=== PATIENT | female | born 2000 | race Hispanic/Latino ===

== ENCOUNTER 2025-07-10 10:57 | Emergency (ER) | payer SELFPAY ==
[2025-07-10 11:01] VITALS: BP 128/70
[2025-07-10 11:30] LABS: Hematocrit 37.7 % (37.0-47.0); Hemoglobin 12.7 g/dL (12.0-16.0); Mean Corp Hgb Conc. 33.7 g/dL (33.0-37.0); Mean Corpuscular Volume 91.1 fL (81.0-99.0); Nucleated Red Blood Cells % 0 %; Platelet Count 297 10^3/uL (130-400); Red Cell Dist. Width 11.7 % (11.5-14.5)
[2025-07-10 11:45] LABS: ALT (SGPT) 27 U/L (0-35); AST (SGOT) 27 U/L (14-36); Albumin 4.7 g/dl (3.5-5.0); Alkaline Phosphatase 83 U/L (38-126); Blood Urea Nitrogen 11 mg/dl (7-17); Calcium 9.3 mg/dl (8.4-10.2); Carbon Dioxide 22 mmol/L (22-30); Chloride 105 mmol/L (98-107); Glucose 89 mg/dl (70-99); Lipase 44 U/L (23-300); Potassium 4.2 mmol/L (3.5-5.1); Sodium 136 mmol/L (135-145); Total Protein 7.8 g/dl (6.3-8.2); eGFR > 60.00
[2025-07-10 11:48] LABS: HCG, Serum Qualitative Screen Negative
[2025-07-10 12:04] LABS: Urine Character Slightly Cloudy (Clear)
--- NOTE | 2025-07-10 14:44 | ED.GENMED ---
Addendum entered and electronically signed by Dmitry Vieyra PA-C 07/14/25 10:24:
Patient's urine culture with greater than 100,000 CFU of E. coli. Pansensitive. Prescription for Augmentin sent to pharmacy. Patient notes she still has symptoms. Encouraged to follow-up with primary care provider.
Original Note:
History of Present Illness
General
Chief Complaint: Abdominal Pain
Source: patient
Time Seen by Provider: 07/10/25 14:32
History of Present Illness
History of Present Illness:
This patient is a 25-year-old female who states that about 3 weeks ago she got epigastric pain without radiation that spontaneously resolved. Then, 6 days ago, on Saturday, she noted that the epigastric pain gradually returned. Since that time, the
pain has been there on and off, described as seeming to come when she eats or drinks or sometimes when she moves a certain way. The pain is without radiation. She denies associated back pain, fever, chills, neck pain, dyspnea, chest pain,
vomiting. Her bowel movements have been normal although after taking a dose of Pepto she noted that her stools were black. She denies heavy nonsteroidal use. Patient's last menstruation was about 2 weeks ago. She presented today because it
seemed like the pain was worse today. At this moment she is pain-free.
Past History
Past History
ED Past Medical History: None
ED Past Surgical History: None
Social History
Tobacco: Non-smoker
Alcohol: None
Drug: None
Living: with family
Phy Exam
Physical Exam
Physical Exam:
GENERAL: Alert , in no apparent distress
EYE: pupils equal and reactive
NECK: Supple, no significant adenopathy.
ENT: o/p clr, mmm.
CARDIAC: Regular rate and rhythm .
LUNGS: Clear breath sounds bilaterally, no acute respiratory distress, no wheezes/rales/rhonchi
ABDOMEN: Soft, very minimal right upper quadrant tenderness, no r/g, no cvat
NEUROLOGICAL: Alert and oriented, no focal neuro deficits
SKIN: Warm and dry, skin intact.
MUSCULOSKELETAL: No edema, well perfused.
PSYCH: Normal and appropriate interaction.
Course
Orders/Labs/Results
Orders:
Orders
07/10/25 11:03
IV Insert/Care/Rem.- Treatment PRN
Test Result ONCE
07/10/25 11:14
Complete Blood Count/With Diff Urgent
Comprehensive Metabolic Panel Urgent
HCG, Serum Qualitative Screen Urgent
Comment: Notify provider if positive test present
Lipase Urgent
07/10/25 11:19
Urinalysis Reflex To Culture Urgent
Date Specimen was Collected: 07/10/25
Time Specimen was Collected: 11:03
Urine Microscopic Reflex Cult Urgent
Urine Culture Urgent
BRE Source: U
Specimen Description:
Date Specimen was Collected: 07/10/25
Time Specimen was Collected: 11:03
07/10/25 14:43
US Abdomen Complete/Upper Urgent
Comment:
Reason For Exam: epigastric pain
07/10/25 16:03
Mag Hydrox/Al Hydrox/Simeth [Maalox] 30 ml Phenobarb/Hyoscy/Atropine/Scop [] 10 ml Viscous Lidocaine 2% [Xylocaine Viscous Cup] 10 ml PO NOW
Abnormal Lab Results
07/10/25 07/10/25
11:14 11:19
RBC 4.14 L 10^6/uL
(4.20-5.40)
Absolute Neuts (auto) 7.8 H 10^3/uL
(1.4-6.5)
Neutrophils % 77.5 H %
(42.2-75.2)
Lymphocytes % 15.9 L %
(20.5-51.1)
Creatinine 0.5 L mg/dL
(0.6-1.0)
Urine Ketones 3+ A
(Negative)
Ur Occult Blood Reflex 4+ A
(Negative)
Leukocyte Esterase Rfl 1+ A
(Negative)
Urine RBC 7-10 A /HPF
(0-2)
Urine Bacteria (Reflex) Few A
(Negative)
Urine Albumin (Reflex) 2+ A
(Neg - Trace)
07/10/25 11:14
07/10/25 11:14
Vital Signs
Initial and Last Documented VS:
Initial Vital Signs
Temp Pulse Resp BP Pulse Ox
98.6 F 105 18 128/70 100
07/10/25 11:01 07/10/25 11:01 07/10/25 11:01 07/10/25 11:01 07/10/25 11:01
Last Documented Vital Signs
Temp Pulse Resp BP Pulse Ox
98.6 F 96 19 106/63 100
07/10/25 11:01 07/10/25 15:38 07/10/25 15:38 07/10/25 15:38 07/10/25 15:38
*Pulse Oximetry
SaO2: 100
Oxygen Mode of Delivery: Room air
Patient hypoxic: no
*Critical Care Note
Total Time (30-74mins, 75-104mins- exclusive of procedures): Not Applicable
Update Note
Update Note:
Patient presents to the Emergency Department with __abdominal pain
Number and Complexity of Problems Addressed at the Encounter
� Chronic conditions affecting care:
� Acute Exacerbation and/or Progression of Chronic Illness:
� Differential Diagnosis includes: But not limited to gastritis, gastric ulcer, pancreatitis, hepatitis, cholecystitis, cholelithiasis, etc. etc.
Amount and/or Complexity of Data to be Reviewed and Analyzed
� I performed an independent evaluation of and my interpretation is:
EKG:
CT:
Xrays:
Laboratory Studies:Generally unremarkable
Other:Ultrasound final report NAD
� Review of other/old records reveals:
� Clinical information was obtained by an independent historian:
� Prescriptions/Medications Considered but not given:
� Further testing considered but not performed:
Risk of Complications and/or Morbidity or Mortality of Patient Management
� Social determinants of health affecting care:
� Discussion with other providers (PCP, Hospitalists, Consultants, etc):
� Escalation of care including admission/observation vs risk of discharge considered:4:06 PM patient remains generally comfortable here, mild discomfort, workup unremarkable for emergent illness. Did discuss with patient the
possibility of gastritis or ulcer as a cause of her symptoms and the need for GI follow-up, avoid nonsteroidals, begin daily antacid use. Discussed with her recent to return to the ER. Patient stable
ED Attending Note
-
Portions of this chart may have been created with voice recognition software.� Occasional wrong word or��sound alike� substitutions may have occurred due to the inherent limitations of voice recognition software.
Discharge Plan
Departure
Patient Disposition: Home (Routine Discharge)
Date of Disposition: 07/10/25
Time of Disposition: 16:04
Patient with high blood pressure during this ER visit?: Yes
Condition: Good
Discharge Problem:
Abdominal pain
Instructions: Abdominal Pain, BLOOD PRESSURE
Prescriptions:
No Action
No Current Medications
0
Referrals:
Albert Prescott MD [Active, Gastroenterology] - Next open appointment
NONE,* [Family Provider, Internal Medicine]
Activity Restrictions/Additional Instructions:
PLEASE TAKE AN ANTACID SUCH PEPCID EVERY DAY FOR THE NEXT 2 WEEKS FOR YOUR SYMPTOMS. AVOID ANTI-INFLAMMATORY MEDICATIONS SUCH IBUPROFEN MOTRIN AND ALEVE. IF YOU DEVELOP INCREASING OR NEW PAIN, CHEST PAIN, SHORTNESS OF BREATH, VOMITING,
FEVER, BLEEDING, OR OTHER WORRISOME SIGNS, PLEASE RETURN TO THE ER IMMEDIATELY!
Interventions
Interventions:
*Risk Screen - Suicide Last Done: 07/10/25 11:01
*General Assessment Last Done: 07/10/25 14:56
*Neglect/Abuse Screening Last Done: 07/10/25 11:01
*ED- Fall Risk Assessment Last Done: 07/10/25 14:56
*ED COVID-19 Vaccine History Last Done: 07/10/25 14:56
TH-Wkzrtj-Pvdoqhbvty Assessment Last Done: 07/10/25 14:55
Discharge Date and Time
Print Language: FAROESE
[2025-07-10 14:54] VITALS: BMI 34.7
[2025-07-10 15:38] VITALS: BP 106/63
[2025-07-10 16:00] VITALS: BP 113/74
[2025-07-10] MEDS: MAALOX 50 PO (16:18)
--- NOTE | 2025-07-14 10:22 | ED.GENMED ---
History of Present Illness
General
Chief Complaint: Abdominal Pain
Time Seen by Provider: 07/10/25 14:32
Past History
Past History
ED Past Medical History: None
ED Past Surgical History: None
Social History
Tobacco: Non-smoker
Alcohol: None
Drug: None
Living: with family
Course
Orders/Labs/Results
Orders:
Orders
07/10/25 11:03
IV Insert/Care/Rem.- Treatment PRN
Test Result ONCE
07/10/25 11:14
Complete Blood Count/With Diff Urgent
Comprehensive Metabolic Panel Urgent
HCG, Serum Qualitative Screen Urgent
Comment: Notify provider if positive test present
Lipase Urgent
07/10/25 11:19
Urinalysis Reflex To Culture Urgent
Date Specimen was Collected: 07/10/25
Time Specimen was Collected: 11:03
Urine Microscopic Reflex Cult Urgent
Urine Culture Urgent
BRE Source: U
Specimen Description:
Date Specimen was Collected: 07/10/25
Time Specimen was Collected: 11:03
07/10/25 14:43
US Abdomen Complete/Upper Urgent
Comment:
Reason For Exam: epigastric pain
07/10/25 16:03
Mag Hydrox/Al Hydrox/Simeth [Maalox] 30 ml Phenobarb/Hyoscy/Atropine/Scop [] 10 ml Viscous Lidocaine 2% [Xylocaine Viscous Cup] 10 ml PO NOW
07/10/25 16:16
Mag Hydrox/Al Hydrox/Simeth [Maalox] 30 ml .ROUTE .STK-MED ONE
Phenobarb/Hyoscy/Atropine/Scop [] 10 ml .ROUTE .STK-MED ONE
07/10/25 16:17
Viscous Lidocaine 2% [Xylocaine Viscous Cup] 15 ml .ROUTE .STK-MED ONE
Abnormal Lab Results
07/10/25 07/10/25
11:14 11:19
RBC 4.14 L 10^6/uL
(4.20-5.40)
Absolute Neuts (auto) 7.8 H 10^3/uL
(1.4-6.5)
Neutrophils % 77.5 H %
(42.2-75.2)
Lymphocytes % 15.9 L %
(20.5-51.1)
Creatinine 0.5 L mg/dL
(0.6-1.0)
Urine Ketones 3+ A
(Negative)
Ur Occult Blood Reflex 4+ A
(Negative)
Leukocyte Esterase Rfl 1+ A
(Negative)
Urine RBC 7-10 A /HPF
(0-2)
Urine Bacteria (Reflex) Few A
(Negative)
Urine Albumin (Reflex) 2+ A
(Neg - Trace)
07/10/25 11:14
07/10/25 11:14
Vital Signs
Initial and Last Documented VS:
Initial Vital Signs
Temp Pulse Resp BP Pulse Ox
98.6 F 105 18 128/70 100
07/10/25 11:01 07/10/25 11:01 07/10/25 11:01 07/10/25 11:01 07/10/25 11:01
Last Documented Vital Signs
Temp Pulse Resp BP Pulse Ox
98.6 F 95 16 113/74 100
07/10/25 11:01 07/10/25 16:15 07/10/25 16:15 07/10/25 16:00 07/10/25 16:15
*Pulse Oximetry
SaO2: 100
Oxygen Mode of Delivery: Room air
ED Attending Note
-
Portions of this chart may have been created with voice recognition software.� Occasional wrong word or��sound alike� substitutions may have occurred due to the inherent limitations of voice recognition software.
Discharge Plan
Departure
Patient Disposition: Home (Routine Discharge)
Date of Disposition: 07/10/25
Time of Disposition: 16:04
Patient with high blood pressure during this ER visit?: Yes
Condition: Good
Discharge Problem:
Abdominal pain
Instructions: Abdominal Pain, BLOOD PRESSURE
Prescriptions:
New
amoxicillin-pot clavulanate 875-125 mg tablet
1 tab PO BID 10 Days Qty: 20 0RF
Referrals:
Albert Prescott MD [Active, Gastroenterology] - Next open appointment
NONE,* [Family Provider, Internal Medicine]
Activity Restrictions/Additional Instructions:
PLEASE TAKE AN ANTACID SUCH PEPCID EVERY DAY FOR THE NEXT 2 WEEKS FOR YOUR SYMPTOMS. AVOID ANTI-INFLAMMATORY MEDICATIONS SUCH IBUPROFEN MOTRIN AND ALEVE. IF YOU DEVELOP INCREASING OR NEW PAIN, CHEST PAIN, SHORTNESS OF BREATH, VOMITING,
FEVER, BLEEDING, OR OTHER WORRISOME SIGNS, PLEASE RETURN TO THE ER IMMEDIATELY!
Interventions
Interventions:
*Risk Screen - Suicide Last Done: 07/10/25 11:01
*General Assessment Last Done: 07/10/25 14:56
*Neglect/Abuse Screening Last Done: 07/10/25 11:01
*ED- Fall Risk Assessment Last Done: 07/10/25 14:56
*ED COVID-19 Vaccine History Last Done: 07/10/25 14:56
*Nursing Disposition Last Done: 07/10/25 16:34
FS-Pvmsbr-Osshxzjids Assessment Last Done: 07/10/25 14:55
Discharge Date and Time
Discharge Date/Time: 07/10/25 16:35
Print Language: AFGHAN
== END 2025-07-10 16:35 | disposition home or self-care (01) ==
LOC: EMR 10:57
PROVIDERS: Emergency Medicine; EMERGENCY PHYSICIAN Emergency Medicine
DX: R10.13 Epigastric pain (principal)
CPT/HCPCS: 99284; 76700; 80053; 81003; 81015; 83690; 84703; 85025; 87077; 87086; 87186